=== PATIENT | male | born 1975 | race Caucasian/White ===

== ENCOUNTER 2018-01-18 00:05 | Emergency (ER) | payer BC ==
[2018-01-18] MEDS ORDERED: NS 1000 ML 1,000 ML ONE (00:07)
[2018-01-18] MEDS ORDERED: ZOFRAN INJ 4 MG VIAL ONE (00:10)
[2018-01-18] MEDS ORDERED: TORADOL 30 MG VIAL ONE (00:10)
[2018-01-18] MEDS ORDERED: TORADOL 30 MG VIAL IVP STA (00:11)
[2018-01-18] MEDS ORDERED: ZOFRAN INJ 4 MG VIAL IVP ONE (00:12)
[2018-01-18] MEDS ORDERED: NS 1000 ML 1,000 ML IV ONE (00:13)
--- NOTE | 2018-01-18 00:17 | DR.GENAD ---
HPI - Complaint/Symptoms Chief Complaint Doctors Comments: Patient is complaining of severe right CVA and lower back pain for the past 2-3 hours getting progressively worst tonight. States he had a sharp pain about two hours ago on the way home then it started back continously hurting with the pain being 12 of 10 with episode vomiting. He denies fever, chills, cold or cough or hematuria. State he has not hurt this bad sine his appendix was removed years ago. States he drank a beer earlier hoping it would help him urinate but has not had anything to drink before that in three years. He denies tobacco or drug usage. He denies history or kidney stones. - Nurses notes reviewed Nurses Notes Review: Yes - Source History Provided: Patient, Family Member - Mode of Arrival Mode of Arrival: Ambulatory - Timing Came on: Suddenly - Duration Duration: Constant How lon Duration: Hours - Location Location: right CVA and lower abdominal pain - Severity Severity: Severe - Modifying Factors Worsens:: nothing Improves:: nothing PMH - PMH Past Medical History: Asthma, Hypertension Past Surgical History: Yes - Family History Family Medical History: Diabetes Mellitus, MD, Hypertension - Social History Do you use any recreational Drugs:: No ROS - Review of Systems Constitutional: No Symptoms Reported, Loss of Appetite Eyes: No Symptoms Reported. negative: See HPI, Eye Pain, Blurred Vision, Tearing, Discharge, Photophobia, Diplopia, Other ENTM: No Symptoms Reported. negative: See HPI, Ear Pain, Ear Discharge, Pulling on Ears, Hearing Loss, Nose Pain, Nose Discharge, Epistaxis, Nose Congestion, Mouth Pain, Mouth Swelling, Loose Teeth, Drooling, Throat Pain, Throat Swelling, Ear Foreign Body Respiratoy: No Symptoms Reported. negative: See HPI, Productive Cough, Non- Productive Cough, Moist Cough, Dry Cough, Hacking Cough, Barking Cough, Brassy Cough, Orthopnea, Short of Breath, Stridor, Wheezing, Hemoptysis, Other Cardiovascular: No Symptoms Reported. negative: See HPI, Chest Pain, Edema, Palpitations, Syncope, Cyanosis, Skin Mottling, Other Gastrointestinal/Abdominal: No Symptoms Reported, Abdominal Pain, Nausea, Vomiting. negative: See HPI, Constipation, Diarrhea, Food Intolerance, Other Genitourinary: No Symptoms Reported, Pain (right CVA pain) Neurological: No Symptoms Reported Musculoskeletal: No Symptoms Reported, Back Pain, Right Integumentary: No Symptoms Reported. negative: See HPI, Change in Color, Change in Hair/Nails, Dryness, Lesions, Lumps, Rash, Itching, Wound, Bruises, Juandice, Other Hematologic/Lymphatic: No Symptoms Reported Endocrine: No Symptoms Reported. negative: See HPI, Excessive Sweating, Flushing, Intolerance to Cold, Intolerance to Heat, Increased Hunger, Increased Thirst, Increased Urine, Unexplained Weight Gain, Unexplained Weight Loss, Failure to Thrive, Decreased Appetite, Other Psychiatric: No Symptoms Reported PE - Vital Signs Vitals: Pulse Rate [Right Brachial] 63 Pulse Rate 78 Respiratory Rate 22 Blood Pressure [Left Arm] 119/67 Blood Pressure [Right Arm] 134/83 Blood Pressure 125/87 O2 Sat by Pulse Oximetry 96 - General Limitations: No Limitations General Appearance: Alert, In Distress (severe) - Head Head Exam: Normal Inspection, Atraumatic, Normocephalic - Eyes Eye exam: Normal Appearance, PERRL, EOMI. negative: Scleral Icterus, Conjunctival Injection, Nystagmus, Miosis, Mydrasis, Periorbital Swelling, Periorbital Tenderness, Other - ENT ENT Exam: Normal Exam, Normal Oropharynx, Normal External Ear Exam, Mucous Membranes Moist, TM's Normal Bilaterally External Ear Exam: Normal External Inspection TM/Canal Exam: Bilateral Normal Nose Exam: Normal Nose Exam Mouth Exam: Normal Inspection. negative: Drooling, Trismus, Lip Swelling, Tongue Elevation, Tongue Swelling, Laceration, Other Throat Exam: Normal Inspection. negative: Tonsillar Erythema, Tonsillomegaly, Tonsillar Exudate, R Peritonsillar Mass, L Peritonsillar Mass, Muffled Voice, Other - Neck Neck Exam: Normal Inspection, Full ROM, Trachea Midline. negative: Tenderness, Meningismus, Lymphadenopathy, Thyromegaly, Other - Chest Chest Inspection: Normal Inspection, Symmetric Chest Wall Rise - Respiratory Respiratory Exam: Normal Lung Sounds Bilat Respiratory Exam: Bilateral Clear to Auscultation - Cardiovascular Cardiovascular Exam: Regular Rate, Normal Rhythm, Normal Heart Sounds - Abdominal Exam Abdominal Exam: Normal Inspection, Normal Bowel Sounds, Soft Abdominal Tenderness: negative: RUQ, RLQ, LUQ, LLQ, Epigastrium, Suprapubic, Diffuse, Mild, Moderate, Severe, Other - Extremities Extremities Exam: Normal Inspection, Full ROM, Normal Capillary Refill. negative: Tenderness, Edema, Joint Swelling, Calf Tenderness, Other - Back Back Exam: Normal Inspection, Full ROM, (R) CVA Tenderness - Neurologic Neurological Exam: Alert, Oriented X3, CN II-XII Intact, Normal Gait, Reflexes Normal - Psychiatric Psychiatric Exam: Normal Affect, Normal Mood - Skin Skin Exam: Warm, Dry, Intact, Normal Color ROR - Labs Reviewed Laboratory Results Reviewed?: Yes (All labs and x-ray results reviewed and discussed with patient) Result Diagrams: 01/18/18 00:18 01/18/18 00:18 Laboratory: WBC 13.3 X10^3/uL (3.6-10.0) H 01/18/18 00:18 RBC 4.89 X10^6/uL (4.7-6.0) 01/18/18 00:18 Hgb 14.6 g/dL (13.5-18.0) 01/18/18 00:18 Hct 42.1 % (42.0-54.0) 01/18/18 00:18 MCV 86.1 fL (80.0-100.0) 01/18/18 00:18 MCH 29.9 pg (27.0-34.0) 01/18/18 00:18 MCHC 34.7 g/dL (33.0-35.0) 01/18/18 00:18 RDW 13.7 % (11.6-16.5) 01/18/18 00:18 Plt Count 286 X10^3/uL (150.0-450.0) 01/18/18 00:18 MPV 8.7 fL (7.4-11.0) 01/18/18 00:18 Neut % (Auto) 53.2 % (42.0-75.0) 01/18/18 00:18 Lymph % (Auto) 31.5 % (21.0-51.0) 01/18/18 00:18 Irwin % (Auto) 11.4 % (0.0-13.0) 01/18/18 00:18 Eos % (Auto) 3.2 % (0.9-2.9) H 01/18/18 00:18 Baso % (Auto) 0.7 % (0.2-1.0) 01/18/18 00:18 Neut # (Auto) 7.0 x10^3/uL (2.2-4.8) H 01/18/18 00:18 Lymph # (Auto) 4.2 X10^3/uL (1.3-2.9) H 01/18/18 00:18 Irwin # (Auto) 1.5 x10^3/uL (0.3-0.8) H 01/18/18 00:18 Eos # (Auto) 0.4 x10^3/uL (0.0-0.2) H 01/18/18 00:18 Baso # (Auto) 0.1 X10^3/uL (0.0-0.1) 01/18/18 00:18 Absolute Nucleated RBC 0.1 /100WBC 01/18/18 00:18 Sodium 140 mmol/L (136-145) 01/18/18 00:18 Corrected Sodium 141 mmol/L (136-145) 01/18/18 00:18 Potassium 3.7 mmol/L (3.5-5.1) 01/18/18 00:18 Chloride 104 mmol/L (98-107) 01/18/18 00:18 Carbon Dioxide 26.8 mmol/L (21-32) 01/18/18 00:18 BUN 12 mg/dL (7-18) 01/18/18 00:18 Creatinine 1.49 mg/dL (0.70-1.30) H 01/18/18 00:18 Est GFR (MDRD) Af Amer > 60 (>60) 01/18/18 00:18 Est GFR (MDRD) Non-Af 55 (>60) L 01/18/18 00:18 Glucose 131 mg/dL (65-99) H 01/18/18 00:18 Calcium 8.4 mg/dL (8.5-10.1) L 01/18/18 00:18 Corrected Calcium TNP 01/18/18 00:18 Total Bilirubin 0.30 mg/dL (0.2-1.0) 01/18/18 00:18 AST 28 Units/L (15-37) 01/18/18 00:18 ALT 48 Units/L (12-78) 01/18/18 00:18 Alkaline Phosphatase 80 Units/L (46-116) 01/18/18 00:18 Total Protein 7.8 g/dL (6.4-8.2) 01/18/18 00:18 Albumin 3.5 g/dL (3.4-5.0) 01/18/18 00:18 Globulin 4.3 g/dL (2.5-4.5) 01/18/18 00:18 Albumin/Globulin Ratio 0.8 Ratio (1.1-2.1) L 01/18/18 00:18 Amylase 32 Units/L (25-115) 01/18/18 00:18 Lipase 99 Units/L (73-393) 01/18/18 00:18 Specimen Type Clean catch urine 01/18/18 01:44 Urine Color Lakshmi (YELLOW) 01/18/18 01:44 Urine Appearance Slightly hazy (CLEAR) 01/18/18 01:44 Urine pH 6.5 (5.0 - 8.0) 01/18/18 01:44 Ur Specific [place] 1.020 (1.000-1.030) 01/18/18 01:44 Urine Protein 2+ (NEGATIVE) 01/18/18 01:44 Urine Glucose (UA) Negative (NEGATIVE) 01/18/18 01:44 Urine Ketones 1+ (NEGATIVE) 01/18/18 01:44 Urine Occult Blood 5+ (NEGATIVE) 01/18/18 01:44 Urine Nitrite Negative (NEGATIVE) 01/18/18 01:44 Urine Bilirubin Negative (NEGATIVE) 01/18/18 01:44 Urine Urobilinogen 1+ (NORMAL) 01/18/18 01:44 Ur Leukocyte Esterase 1+ (NEGATIVE) 01/18/18 01:44 Urine RBC Tntc /HPF (NONE SEEN) 01/18/18 01:44 Urine WBC 3-5 /HPF (NONE SEEN) 01/18/18 01:44 Ur Squamous Epith Cells Rare /HPF (NEGATIVE) 01/18/18 01:44 Urine Bacteria Trace /HPF (NEGATIVE) 01/18/18 01:44 Urine Mucus Moderate /HPF (NEGATIVE) 01/18/18 01:44 Ur Culture Indicated? No/not indicated 01/18/18 01:44 Urine Opiates Screen Positive (NEG=<300) 01/18/18 01:44 Urine Methadone Screen Negative (NEG=<300) 01/18/18 01:44 Ur Barbiturates Screen Negative (NEG=<200) 01/18/18 01:44 Ur Phencyclidine Scrn Negative (NEG=<25) 01/18/18 01:44 Ur Amphetamines Screen Negative (NEG=<1000) 01/18/18 01:44 U Benzodiazepines Scrn Negative (NEG=<200) 01/18/18 01:44 Urine Cocaine Screen Negative (NEG=<300) 01/18/18 01:44 U Marijuana (THC) Screen Negative (NEG=<50) 01/18/18 01:44 - XRAY XRAY Interpreted by: Radiologist (CT abdomen and pelvis: Mild right-sided hydroureter with a 1mm punctate calculus in the region of the right UVJ) - Diagnosis Discharge Problem: Renal calculus, right, Hydroureter on right, Hyperglycemia Abdominal pain Qualifiers: Abdominal location: right lower quadrant Qualified Code(s): R10.31 - Right lower quadrant pain - Discharge Plan Disposition: HOME, SELF-CARE Condition: Stable Prescriptions: Ketorolac Tromethamine [Toradol Tab] 10 mg PO Q8H PRN #12 tab PRN Reason: Pain Tamsulosin HCl [Flomax] 0.4 mg PO DAILY PRN #6 cap PRN Reason: - Follow ups/Referrals Follow ups/Referrals: NAVIN DE LA VEGA [Primary Care Provider] - 3 days TRAM ARTEAGA [CONSULTING PHYSICIAN] - 3 days - Instructions Instructions: Kidney Stones, [id number], Hyperglycemia, [id number], Hydronephrosis
[2018-01-18] MEDS ORDERED: PHENERGAN INJ 25 MG IM ONE ×2 (00:20→00:25)
[2018-01-18] MEDS ORDERED: MORPHINE SULFATE INJ 4 MG ONE (00:20)
[2018-01-18] MEDS ORDERED: MORPHINE SULFATE INJ 4 MG IVP ONE (00:20)
[2018-01-18] MEDS ORDERED: PHENERGAN INJ 25 MG ONE (00:21)
[2018-01-18] MEDS ORDERED: PHENERGAN INJ 25 MG IV ONE (00:21)
[2018-01-18 00:27] LABS: BASOPHILS # (AUTO) 0.1 X10^3/uL (0.0-0.1); BASOPHILS % (AUTO) 0.7 % (0.2-1.0); EOSINOPHILS # (AUTO) 0.4 x10^3/uL (0.0-0.2); EOSINOPHILS % (AUTO) 3.2 % (0.9-2.9); HEMATOCRIT 42.1 % (42.0-54.0); HEMOGLOBIN 14.6 g/dL (13.5-18.0); LYMPHOCYTES # (AUTO) 4.2 X10^3/uL (1.3-2.9); LYMPHOCYTES % (AUTO) 31.5 % (21.0-51.0); MEAN CORPUSCULAR HEMOGLOBIN 29.9 pg (27.0-34.0); MEAN CORPUSCULAR HGB CONC 34.7 g/dL (33.0-35.0); MEAN CORPUSCULAR VOLUME 86.1 fL (80.0-100.0); MEAN PLATELET VOLUME 8.7 fL (7.4-11.0); MONOCYTES # (AUTO) 1.5 x10^3/uL (0.3-0.8); MONOCYTES % (AUTO) 11.4 % (0.0-13.0); NEUTROPHILS % (AUTO) 53.2 % (42.0-75.0); PLATELET COUNT 286 X10^3/uL (150.0-450.0); RED BLOOD COUNT 4.89 X10^6/uL (4.7-6.0); RED CELL DISTRIBUTION WIDTH 13.7 % (11.6-16.5); WHITE BLOOD COUNT 13.3 X10^3/uL (3.6-10.0)
[2018-01-18 00:37] VITALS: BMI 38.6
[2018-01-18] MEDS ORDERED: BENADRYL INJ 50 MG VIAL IVP STA (00:56)
[2018-01-18] MEDS ORDERED: MORPHINE SULFATE INJ 2 MG INJ IVP ONE (00:56)
[2018-01-18] MEDS ORDERED: MORPHINE SULFATE INJ 2 MG INJ ONE (00:57)
[2018-01-18 01:28] LABS: ALANINE AMINOTRANSFERASE 48 Units/L (12-78); ALBUMIN 3.5 g/dL (3.4-5.0); ALKALINE PHOSPHATASE 80 Units/L (46-116); AMYLASE 32 Units/L (25-115); ASPARTATE AMINO TRANSFERASE 28 Units/L (15-37); BLOOD UREA NITROGEN 12 mg/dL (7-18); CALCIUM 8.4 mg/dL (8.5-10.1); CARBON DIOXIDE 26.8 mmol/L (21-32); CHLORIDE 104 mmol/L (98-107); COR NA(FOR HYPERGLY) 141 mmol/L (136-145); CREATININE 1.49 mg/dL (0.70-1.30); LIPASE 99 Units/L (73-393); SODIUM 140 mmol/L (136-145); TOTAL PROTEIN 7.8 g/dL (6.4-8.2); eGFR BLACK RACES > 60 (>60); eGFR NON BLACK RACES 55 (>60)
--- NOTE | 2018-01-18 01:31 | CT ---
HISTORY: Right lower quadrant pain, dysuria Study: CT abdomen and pelvis without contrast Comparison: 02/23/2016 Technique: Multiple axial images of the abdomen and pelvis were obtained without IV contrast. Dose reduction t echniques including Automated Exposure Control (AEC) and adjustment of mA and kV were utilized. Findings: Please note evaluation is limited without use of IV contrast. The visualized lung bases are clear. The unenhanced spleen, pancreas, liver, gallbladder, and adrena l glands are unremarkable. Kidneys appear normal with mild hydroureter on the right side due to a 1 m m punctate calculus in the region of the right UVJ or possibly just within the bladder lumen. No othe r stones are identified. No free intraperitoneal air. No evidence of intestinal obstruction or inflammation. The appendix is r emoved. No free fluid is seen. The soft tissues and osseous structures are unremarkable. Limited evaluation of vascular structures d ue to lack of contrast. No pathologically enlarged lymph nodes are identified. IMPRESSION: 1. Mild right-sided hydroureter with a 1 mm punctate calculus in the region of the right UVJ or possi ladonna just within the bladder lumen. No other stones are seen. Reported By:
[2018-01-18] MEDS ORDERED: FLOMAX PO STA (01:59)
[2018-01-18 02:04] VITALS: BP 119/67
[2018-01-18 02:32] LABS: BILIRUBIN,URINE NEGATIVE (NEGATIVE); BLOOD/HEMOGLOBIN,URINE 5+ (NEGATIVE); GLUCOSE, URINE NEGATIVE (NEGATIVE); KETONES,URINE 1+ (NEGATIVE); LEUKOCYTE ESTERASE ,URINE 1+ (NEGATIVE); NITRITES,URINE NEGATIVE (NEGATIVE); PH,URINE 6.5 (5.0 - 8.0); PROTEIN,URINE 2+ (NEGATIVE); UROBILINOGEN,URINE 1+ (NORMAL)
[2018-01-18 02:43] LABS: APPEARANCE,URINE SLIGHTLY HAZY (CLEAR); COLOR,URINE AMBER (YELLOW)
[2018-01-18 02:44] LABS: BACTERIA,URINE TRACE /HPF (NEGATIVE); MUCUS,URINE MODERATE /HPF (NEGATIVE); RBC,URINE TNTC /HPF (NONE SEEN); SQUAMOUS EPITHELIAL CELL,UR RARE /HPF (NEGATIVE)
== END 2018-01-18 03:05 | disposition home or self-care (01) ==
LOC: ER 00:05
DX: N20.0 Calculus of kidney (principal); N13.4 Hydroureter; R73.9 Hyperglycemia, unspecified; R10.31 Right lower quadrant pain
CPT/HCPCS: 36415; 74176; 80053; 80307; 81001; 82150; 83690; 85025; 96365; 96372; 96374; 96375; 99282; 99283; A4216; A4222; G0434; J1885; J2270; J2405; J2550